=== PATIENT | female | born 1985 | race Caucasian/White ===

== ENCOUNTER 2016-09-15 15:07 | Emergency (ER) | payer MEDICAID ==
[~2016-09-15] VITALS: Wt 69.0 kg
[2016-09-15 16:34] LABS: URINE BLOOD (Dip) POC Negative (NEGATIVE)
[2016-09-15] MEDS ORDERED: ACET325T33 PO (16:44)
--- NOTE | 2016-09-15 18:41 | ERD ---
DATE OF SERVICE: HISTORY OF PRESENT ILLNESS: The patient is a 31-year-old female coming in complaining of abdominal pain on the left flank for the last 3 days. Patient states that she has had this pain for 2 weeks; however, she feels it has slightly intensified over the last 3 days. She has had normal urination a nd bowel movements. She is passing stool without difficulty. She has some mild headache. She has no dysuria, no vomiting. No fevers. She is not taking medications for her symptoms. She has had a bdominal surgery, which was C-sections. PAST MEDICAL HISTORY: Denies medical problems. MEDICATION ALLERGIES: Denies. SURGICAL HISTORY: C-sections. SOCIAL HISTORY: Denies. REVIEW OF SYSTEMS: A 12-point review of systems was done. Refer to HPI for positives, all other sy stems negative. PHYSICAL EXAMINATION VITAL SIGNS: Temperature is 98, pulse 71, blood pressure is 125/71, respiratory 18, O2 saturation 9 9% on room air. Pain intensity is 0/10. GENERAL: The patient is well-appearing, well-nourished, no acute distress. HEENT: Atraumatic. Conjunctivae are pink. Pupils equal, round, and reactive to light. There is no s cleral icterus. Tympanic membranes clear bilaterally. Oropharynx clear. No nystagmus or photophobia . CHEST: Clear to auscultation bilaterally. There are no rales, wheezes or rhonchi. HEART: Regular rate and rhythm. No murmurs, clicks, rubs or gallops. No S3 or S4. ABDOMEN: Normoactive bowel sounds per auscultation. No distention, no organomegaly. The patient h as mild tenderness to palpation over the left flank; however, there is no rebound tenderness. The p atient is able to jump up and down without peritoneal signs. No CVA tenderness. EMERGENCY ROOM COURSE: The patient had a urine dip checked in the ER. Patient's urine showed negat cholo leukocytes, negative nitrites, negative protein, negative glucose, negative blood. The patient' s was negative. DIAGNOSIS: Left flank pain, unspecified. MEDICAL DECISION MAKING: I have low suspicion for nephrolithiasis. Low suspicion for septic stone. The patient's exam is within normal limits and the patient is afebrile. I have low suspicion for bowel obstruction. The patient is passing stool without difficulty. I have low suspicion for diver ticulitis or abscess formation as there is no severe tenderness to palpation over the abdomen. The patient's vitals are stable. I have low suspicion for pelvic abnormality as patient does not have t enderness in the pelvic region. DISCHARGE: The patient is discharged stable. Patient given prescription for Tylenol and told to fo llow up with primary care within 1 to 2 days for reevaluation. The patient was told if symptoms pro na or worsen to return to the ER. All other questions answered at time of discharge. Discharge summary given at the time of departure. Patient understood and complied with plan. Dictated By: MONIQUE HAMM for NOMI FERREIRA/JERRY Conf#: [id number] DID#: [id number]
== END 2016-09-15 16:50 | disposition home or self-care (01) ==
LOC: FTE 15:07
DX: R10.9 Unspecified abdominal pain (principal)
CPT/HCPCS: 81003; Z7502; 99283